=== PATIENT | male | born 1955 | race Caucasian/White ===

== ENCOUNTER 2017-11-02 08:44 | Day surgery (SDC) | payer OTHER ==
[2017-11-02] MEDS ORDERED: LR 1,000 ML IV ONE (09:01)
[2017-11-02 09:09] VITALS: PULSE 68; TEMP 97.9
--- NOTE | 2017-11-02 09:13 | PDGENHP ---
History & Physical Chief Complaint: PHX POLYPS History of Present Illness: phx polyps Pertinent Past, Social, Family History: .notobacco. alcohol few times per week. fhx - dad age 50's Relevant Physical Exam: a+ox3. CTA. S1S2. +BS, soft nt Cardiorespiratory Assessment: class 1
--- NOTE | 2017-11-02 09:14 | PDPROPOC ---
Sedation Plan of Care Sedation Plan of Care: vital signs stable, mental status noted, patient educated of risks, benefits, alternatives, patient can tolerate sedation ASA Classification: ASA 1 Planned drugs: fentanyl, midazolam Mallampati Score: Class 1 Mallampati Reference Image: 2 Patient passed 3-3-2 rule?: Yes
[2017-11-02] MEDS ORDERED: MIDAZOLAM 2 MG/2 ML VIAL ONE (09:35)
[2017-11-02] MEDS ORDERED: fentaNYL 100 MCG/2 ML INJ ONE (09:35)
[2017-11-02] MEDS ORDERED: fentaNYL 100 MCG/2 ML INJ IVP ONE (10:04)
[2017-11-02] MEDS ORDERED: MIDAZOLAM 2 MG/2 ML VIAL IVP ONE (10:04)
--- NOTE | 2017-11-02 10:35 | POSTOPPROG ---
Post Op Note Date of Operation: 11/02/17 Surgeon: Endy Pinzon Anesthesia: IV Sedation (fentanyl 100 mcg versed 4 mg IV) Pre-op Diagnosis: phx cc and polyps, last colon one year ago with large polyps removed Post-op Diagnosis: polyps x 7, largest was approx 6mm, mild diverticulosis Indication: phx cc and polyps Procedure: colon with cold snare and cold bx Findings: 3 mid TC polyps approx 4-6 mm, 1 distal TC 6mm, 2 descending 2-3mm cold bx Inf/Abcess present in the surg proc area at time of surgery?: No EBL: Minimal (few ml) Total fluids administered: 100 ml LR Complications: none immediate
--- NOTE | 2017-11-02 10:46 | GIREPORT ---
[facility] Surgical Services - Endoscopy Department Patient Name: Ean Chaney Procedure Date: 11/02/2017 9:40 AM Patient Type: Inpatient Attending MD/ ER Physician: Silvana Murray Procedure: Colonoscopy Indications: Surveillance: Personal history of piecemeal removal of adenoma on last colonoscopy (less than 1 year ago), High risk colon cancer surveillance : Personal history of colon cancer Providers: Mike Pinzon MD Medicines: Fentanyl 100 micrograms IV, Midazolam 4 mg IV Complications: No immediate complications. Estimated blood loss: Minimal. Description of Procedure: After obtaining informed consent, the scope was passed under direct vis ion. Throughout the procedure, the patient's blood pressure, pulse, and oxyg en saturations were monitored continuously. The Colonoscope with irrigatio n channel was introduced through the anus and advanced to the terminal il eum, with identification of the appendiceal orifice and IC valve. The colono scopy was performed without difficulty. The patient tolerated the procedure w ell. The quality of the bowel preparation was good. Findings: The digital rectal exam was normal. The terminal ileum appeared normal. A single medium-mouthed diverticulum was found in the ascending colon. Three sessile polyps were found in the mid transverse colon. The polyps were 4 to 6 mm in size. These polyps were removed with a cold snare. Resecti on and retrieval were complete. Estimated blood loss was minimal. A 6 mm polyp was found in the distal transverse colon. The polyp was semi-sessile. The polyp was removed with a cold snare. Resection and retrieval were complete. Estimated blood loss was minimal. Three sessile polyps were found in the descending colon. The polyps wer e 1 to 2 mm in size. These polyps were removed with a cold biopsy forceps. Resection and retrieval were complete. Estimated blood loss was minimal . A tattoo was seen in the mid transverse colon. A post-polypectomy scar was found at the tattoo site. There was no evidence of residual polyp tissu e. A tattoo was seen in the distal transverse colon. A post-polypectomy sc ar was found at the tattoo site. There was no evidence of residual polyp t issue. There was evidence of a prior end-to-end colo-colonic anastomosis in th e proximal rectum. This was patent and was characterized by healthy appea ring mucosa. The anastomosis was traversed. The exam was otherwise without abnormality. Estimated Blood Loss: Estimated blood loss was minimal. Post Op Diagnosis: - The examined portion of the ileum was normal. - Diverticulosis in the ascending colon. - Three 4 to 6 mm polyps in the mid transverse colon, removed with a co ld snare. Resected and retrieved. - One 6 mm polyp in the distal transverse colon, removed with a cold sn are. Resected and retrieved. - Three 1 to 2 mm polyps in the descending colon, removed with a cold b iopsy forceps. Resected and retrieved. - A tattoo was seen in the mid transverse colon. A post-polypectomy sca r was found at the tattoo site. There was no evidence of residual polyp tissu e. - A tattoo was seen in the distal transverse colon. A post-polypectomy scar was found at the tattoo site. There was no evidence of residual polyp t issue. - Patent end-to-end colo-colonic anastomosis, characterized by healthy appearing mucosa. - The examination was otherwise normal. Recommendation: - Await pathology results. - My office will call with the pathology result with 5-7 days. If you h ave not heard from my office by 12-14, do not assume the pathology is elsy l, please call [phone] to get the pathology reults. - Repeat colonoscopy in 2 years for surveillance based on pathology res ults. - High fiber diet for the rest of the patient's life. - 30-35 grams of dietary fiber per day. Can use supplemental fiber. - A high fiber diet may decrease risk of complications from diverticulo sis. There is no need to avoid seeds or nuts. - Patient has a contact number available for emergencies. The signs and symptoms of potential delayed complications were discussed with the pat ient. Return to normal activities tomorrow. Written discharge instructions we re provided to the patient. - Continue present medications. - Discharge patient to home (ambulatory). - Return to primary care physician as previously scheduled. - Thank you for allowing me to help in your patient's care. Do not hesi enrique to call with any questions. Attending Participation: I personally performed the entire procedure. Alberta Mckeon M.D Mike Pinzon MD 11/02/2017 10:45:54 AM This report has been signed electronicallyMathew MD [place] Number of Addenda: 0 Note Initiated On: 11/02/2017 9:40 AM Total Procedure Duration Time 0 hours 23 minutes 12 seconds [email or web address]
[2017-11-02 11:16] VITALS: RESP 16
[2017-11-02 11:49] VITALS: BP 90/54; O2SAT 94
== END 2017-11-02 11:40 | disposition home or self-care (01) ==
LOC: FSGY 08:44
PROVIDERS: ATTEND Internal Medicine Gastroenterology
PROC: 0DBM8ZX Excision of Descending Colon, Via Natural or Artificial Opening Endoscopic, Diagnostic (ICD-10-PCS; principal; 2017-11-02 09:45)
PROC: 0DBL8ZX Excision of Transverse Colon, Via Natural or Artificial Opening Endoscopic, Diagnostic (ICD-10-PCS; principal; 2017-11-02 09:45)
DX: D12.3 Benign neoplasm of transverse colon (principal); D12.4 Benign neoplasm of descending colon; K57.30 Diverticulosis of large intestine without perforation or abscess without bleeding; Z85.038 Personal history of other malignant neoplasm of large intestine; Z86.010 Personal history of colon polyps
CPT/HCPCS: J2250; J3010

== ENCOUNTER → 2019-05-16 | Outpatient (CLI) | payer OTHER | LOC: FIMAGING 10:44 ==